=== PATIENT | female | born 1950 | race Caucasian/White ===

== ENCOUNTER 2016-06-24 10:53 | Outpatient (CLI) | payer MEDICARE, OTHER | END 2016-06-24 10:54 | disposition home or self-care (01) | DX: Z12.31 Encounter for screening mammogram for malignant neoplasm of breast (principal); Z80.3 Family history of malignant neoplasm of breast ==

== ENCOUNTER 2017-05-24 08:52 | Day surgery (SDC) | payer MEDICARE, OTHER ==
[2017-05-24] MEDS ORDERED: LACTATED RINGERS 1,000 ML IV ONE (09:37)
[2017-05-24] MEDS ORDERED: MIDAZOLAM 2 MG/2 ML VIAL IVP ONE (11:03)
[2017-05-24] MEDS ORDERED: ONDANSETRON 4 MG/2 ML VIAL IVP ONE (11:03)
[2017-05-24] MEDS ORDERED: fentaNYL 100 MCG/2 ML VIAL IVP ONE (11:03)
[2017-05-24 12:02] VITALS: BP 99/53
== END 2017-05-24 08:53 | disposition home or self-care (01) ==
LOC: SDS 08:52
PROVIDERS: ATTEND Surgery
PROC: 0DBN8ZZ Excision of Sigmoid Colon, Via Natural or Artificial Opening Endoscopic (ICD-10-PCS; 2017-05-24)
PROC: 0DBN8ZZ Excision of Sigmoid Colon, Via Natural or Artificial Opening Endoscopic (ICD-10-PCS; principal; 2017-05-24 10:15)
DX: Z12.11 Encounter for screening for malignant neoplasm of colon (principal); D12.5 Benign neoplasm of sigmoid colon; K21.9 Gastro-esophageal reflux disease without esophagitis; Z87.891 Personal history of nicotine dependence
CPT/HCPCS: 45380; 45385; J7120

== ENCOUNTER 2018-01-20 12:48 | Outpatient (CLI) | payer MEDICARE, OTHER ==
--- NOTE | 2018-01-21 17:29 | Mammography Report ---
Reason: SCREENING MAMMO Procedure Date: 01/20/2018 Accession Number: [id number] / [id number] Procedure: DARYL - Screening Mammo Dig Bilat CPT Code: FULL RESULT: EXAM: Screening Mammo Dig Bilat DATE: 01/20/2018 1:42 PM CLINICAL HISTORY: 67-year-old female with history of bilateral breast biopsies with benign results and family history of breast cancer in the mother at age 60. TECHNIQUE: Bilateral CC and MLO views were obtained. COMPARISON: 06/24/2016, 08/24/2013. FINDINGS: The breasts demonstrate extremely dense parenchyma bilaterally, limiting the sensitivity of mammography. Typically benign coarse calcifications are seen bilaterally. No suspicious masses, clustered microcalcifications, or regions of architectural distortion are identified. IMPRESSION: Benign findings RECOMMENDATION: Routine annual screening unless otherwise clinically indicated. BIRADS CATEGORY 2: Benign findings STANDARD QUALIFYING STATEMENTS: 1. This examination was not reviewed with the aid of Computer-Aided Detection (CAD). 2. A negative or benign imaging report should not delay biopsy if clinically suspicious findings are present. Consider surgical consultation if warrented. More than 5% of cancers are not identified by imaging. 3. Dense breasts may obscure an underlying neoplasm. 4. This examination was reviewed without the aid of 3D breast imaging (tomosynthesis).
== END 2018-01-20 12:49 | disposition home or self-care (01) ==
LOC: DI 12:48
PROVIDERS: ATTEND Radiology Diagnostic Radiology
DX: Z12.31 Encounter for screening mammogram for malignant neoplasm of breast (principal); Z80.3 Family history of malignant neoplasm of breast
CPT/HCPCS: 77067

== ENCOUNTER 2018-03-09 08:59 | Outpatient (CLI) | payer MEDICARE, OTHER ==
--- NOTE | 2018-03-09 17:18 | DEXA Report ---
Reason: POST MENOPAUSAL Procedure Date: 03/09/2018 Accession Number: [id number] / [id number] Procedure: DEX - Dexa Spine and/or Hip CPT Code: FULL RESULT: EXAM: Dexa Spine and/or Hip DATE: 03/09/2018 10:01 AM CLINICAL HISTORY: POST MENOPAUSAL TECHNIQUE: Dual energy x-ray absorptiometry (DXA) was performed on a [employer] System. Regions measured are the AP Spine, femoral neck, and if needed forearm. COMPARISON: None. In accordance with the International Society for Clinical Densitometry (ISCD) guidelines, data from previous exams may be reanalyzed using current recommendations and techniques. This is done to allow a more accurate basis for comparison with the current study. FINDINGS: The data for the lumbar spine is as follows: BMD (g/cm/cm) T-SCORE Z-SCORE REGION L1 1.097 -0.3 1.1 L2 1.198 0.0 1.4 L3 1.299 0.8 2.2 L4 1.245 0.4 1.8 TOTAL 1.213 0.3 1.7 NOTE: All evaluable vertebrae are used for classification The data for the hip is as follows: BMD (g/cm/cm) T-SCORE Z-SCORE REGION Neck 0.958 -0.6 0.8 TOTAL 0.994 -0.1 1.0 NOTE: The femoral neck or total proximal femur, whichever is lowest, is used for classification. IMPRESSION: THE WHO CLASSIFICATION BASED ON THE INTERNATIONAL REFERENCE STANDARD IS NORMAL. THE FRACTURE RISK IS NOT INCREASED. RECOMMENDATION: Patients with diagnosis of osteoporosis or osteopenia should have regular bone mineral density assessment. For those eligible for Medicare, routine testing is allowed once every 2 years. Testing frequency can be increased for patients who have rapidly progressing disease or for those who are receiving medical therapy to restore bone mass. COMMENT: World Health Organization (WHO) definitions for osteoporosis and osteopenia: NORMAL BMD: T-score at -1.0 or higher, fracture risk is low OSTEOPENIA BMD: T-score between -1.0 and -2.5, fracture risk is increased. OSTEOPOROSIS BMD: T-score at -2.5 or lower, fracture risk is high. National Osteoporosis Foundation recommends: 1. Obtain adequate dietary calcium (at least 1200 mg per day) and vitamin D (400-800 international units per day). 2. Participate, as appropriate, in regular weightbearing and muscle-strengthening exercise. 3. Avoid tobacco use and reduce alcohol and caffeine intake. 4. For more detailed information see the website at www.NOF.org.
== END 2018-03-09 09:00 | disposition home or self-care (01) ==
LOC: DI 08:59
PROVIDERS: ATTEND Registered Nurse
DX: Z13.820 Encounter for screening for osteoporosis (principal); Z78.0 Asymptomatic menopausal state
CPT/HCPCS: 77080

== ENCOUNTER 2023-08-23 09:41 | Day surgery (SDC) | payer MEDICARE, OTHER ==
[2023-08-23] MEDS: LACTATED RINGERS 1,000 ML IV ONE (10:01)
--- NOTE | 2023-08-23 10:02 | ANESTHESIA ---
Pre-Anesthesia VS, & Labs - Diagnosis chronic constipation, screening - Procedure colonoscopy Height: 5 ft 9 in Weight (kg): 72.7 kg Body Mass Index: 23.6 BMI Classification: Normal - NPO >8 hours Last Fluid Intake: am prep - Is Patient ?: No - Lab Results Lab results reviewed: Yes Home Medications and Allergies Home Medications: Ambulatory Orders Simvastatin [Zocor] 20 mg PO DAILY 08/23/23 Allergies/Adverse Reactions: Allergies Allergy/AdvReac Type Severity Reaction Status Date / Time codeine AdvReac Nausea Verified 05/24/17 11:37 Anes History & Medical History - Anesthetic History Anesthesia Complications: reports: No previous complications Family history of Anesthesia Complications: Denies Family history of Malignant Hyperthermia: Denies - Medical History Cardiovascular: reports: High cholesterol Pulmonary: reports: None Gastrointestinal: reports: None Urinary: reports: None Musculoskeletal: reports: None Endocrine/Autoimmune: reports: None Skin: reports: None - Surgical History General: reports: Appendectomy, Colonoscopy Gynecologic: reports: Hysterectomy Exam General: Alert, Oriented x3, Cooperative Dental: WNL Mouth Openin Fingerbreadth Mallampati classification: II Thyromental Distance: 4-6 cm Respiratory: Lungs clear, Normal breath sounds, No respiratory distress Cardiovascular: Regular rate Neurological: Normal speech Mental/Cognitive Status: Alert/Oriented X3, Normal for patient Cognitive Status: Within normal limits Plan Anesthesia Type: Total IV Consent for Procedure(s) Verified and Reviewed: Yes Code Status: Attempt Resuscitation ASA classification: 2-Mild systemic disease Is this case an emergency?: No
[2023-08-23 10:16] VITALS: O2SAT 100
[2023-08-23] MEDS ORDERED: PROPOFOL 500 MG/50 ML 500 MG/50 ML VIAL ONE (10:51)
[2023-08-23] MEDS: LACTATED RINGERS 300 ML IV ONE (11:35)
[2023-08-23 12:02] VITALS: BP 129/88
--- NOTE | 2023-08-23 13:08 | ANESTHESIA POST OP EVALUATION ---
Anesthesia Post Eval - Post Anesthesia Eval Vitals: Last Vital Signs Temp 36.6 C 08/23/23 11:50 Pulse 81 08/23/23 11:50 Resp 17 08/23/23 11:50 BP 129/88 H 08/23/23 11:50 Pulse Ox 100 08/23/23 11:50 O2 Flow Rate CV Function Including HR & BP: Stable Pain Control: Satisfactory Nausea & Vomiting: Negative Mental Status: Baseline Respiratory Status: Airway Patent Hydration Status: Satisfactory Anesthesia Complications: None
== END 2023-08-23 09:42 | disposition home or self-care (01) ==
LOC: SDS 09:41
PROVIDERS: ATTEND Surgery
PROC: 0DDN8ZX Extraction of Sigmoid Colon, Via Natural or Artificial Opening Endoscopic, Diagnostic (ICD-10-PCS; 2023-08-23)
PROC: 0DBN8ZZ Excision of Sigmoid Colon, Via Natural or Artificial Opening Endoscopic (ICD-10-PCS; principal; 2023-08-23 11:15)
DX: R19.4 Change in bowel habit (principal); K63.5 Polyp of colon; K64.1 Second degree hemorrhoids; Z87.891 Personal history of nicotine dependence
CPT/HCPCS: 45380; 45385; J7120

== ENCOUNTER 2023-11-21 14:35 | Emergency (ER) | payer MEDICARE, OTHER ==
[2023-11-21] MEDS ORDERED: iohexoL-300 100 ML VIAL ONE (15:08)
--- NOTE | 2023-11-21 15:18 | ED Physician Documentation ---
PD HPI FOCAL NEURO - Stated complaint Stated Complaint: AMS - Chief complaint Chief Complaint: Neuro - History obtained from History obtained from: Patient - History of Present Illness Timing - onset: How many hours ago (about 4-5 hours ago, awoke at 8:30 and seeme d to feel okay. was talkig and not confused. Then about hour later, noted onset of feeling confused and not sure what she was supposed to be doing and not remembering details of recent few days, but also some remote memories from weeks or more prior.), Today Timing - details: Abrupt onset, Still present (improving but not resolved as yet.) Associated symptoms: No: Headache, Nausea / vomiting, Chest pain, Neck pain Similar symptoms before: Has not had sx before Review of Systems Constitutional: denies: Fever, Chills Nose: denies: Rhinorrhea / runny nose, Congestion Throat: reports: Oral lesions / sores (onset of lip labial cold sore this morning, that she has had prior, and 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 First time taking it this morning.). denies: Sore throat Respiratory: denies: Cough Neurologic: denies: Focal weakness, Numbness, Near syncope, Headache, Head injury PD PAST MEDICAL HISTORY - Past Medical History Past Medical History: Yes Cardiovascular: High cholesterol Respiratory: None Endocrine/Autoimmune: None GI: None TELESALES AGENT: None : None HEENT: None Psych: None Musculoskeletal: None Derm: None - Past Surgical History Past Surgical History: Yes General: Appendectomy, Colonoscopy /TELESALES AGENT: Hysterectomy - Present Medications Home Medications: Ambulatory Orders Medication Instructions Recorded Confirmed Simvastatin [Zocor] 20 mg PO DAILY 08/23/23 11/21/23 - Allergies Allergies/Adverse Reactions: Allergies Allergy/AdvReac Type Severity Reaction Status Date / Time codeine AdvReac Nausea Verified 11/21/23 14:41 - Social History Does the pt smoke?: No Smoking Status: Former smoker Does the pt drink ETOH?: Yes ETOH Use: Wine Does the pt have substance abuse?: No - Immunizations Immunizations are current?: Yes - POLST Patient has POLST: No PD ED PE NORMAL - Vitals Vital signs reviewed: Yes - General General: Alert and oriented X 3, No acute distress, Well developed/nourished - Neck Neck: Supple, no meningeal sign, No adenopathy, No bruit - Cardiac Cardiac: RRR, No murmur - Respiratory Respiratory: Clear bilaterally - Neuro Neuro: Alert and oriented X 3, workers compensation consultant 2-12 intact, No motor deficit, No sensory deficit, Normal speech, Other (only deficit is that she seems to have difficultly remembering some details of recent events and the names of some people she should remember. ) Eye Opening: Spontaneous Motor: Obeys Commands Verbal: Oriented GCS Score: 15 NIHSS - Level of Consciousness Level of consciousness: (0) Alert, Keenly responsive LOC Questions: (0) Answers both Q's correct LOC Commands: (0) Performs both correctly - Gaze Best Gaze: (0) Normal - Visual Visual: (0) No loss - Facial Palsy Facial Palsy: (0) Normal, symmetrical movement - Motor Arms (both separate) Motor Arm (right): (0) No drift Motor Arm (left): (0) No drift - Motor Legs (both separate) Motor Leg (right): (0) No drift Motor Leg (left): (0) No drift - Limb Ataxia Limb Ataxia: (0) Absent - Sensory Sensory: (0) Normal - Best Language Best Language: (0) No aphasia - Dysarthria Dysarthria: (0) Normal - Extinction and Inattention (formally neg Extinction and inattention: (0) No abnormality - Total Score/Results Total Score/Result: 0 Results - Vitals Vitals: Vital Signs - 24 hr 11/21/23 11/21/23 11/21/23 14:43 15:19 15:49 Temperature 36.4 C L Heart Rate 92 77 78 Respiratory 16 10 L 18 Rate Blood Pressure 116/69 141/69 H 140/70 H O2 Saturation 100 100 98 11/21/23 11/21/23 11/21/23 16:00 17:00 17:30 Temperature Heart Rate 76 84 80 Respiratory 14 16 18 Rate Blood Pressure 141/69 H 142/86 H 140/76 H O2 Saturation 100 98 98 11/21/23 18:00 Temperature Heart Rate 77 Respiratory 16 Rate Blood Pressure 138/70 H O2 Saturation 100 Oxygen O2 Source Room air - Labs Labs: Laboratory Tests 11/21/23 11/21/23 11/21/23 15:20 15:20 15:20 WBC 7.3 RBC 3.99 L Hgb 13.7 Hct 41.3 MCV 103.5 H MCH 34.3 H MCHC 33.2 RDW 13.4 Plt Count 241 MPV 10.5 Neut # (Auto) 4.2 Lymph # (Auto) 2.3 [place] # (Auto) 0.5 Eos # (Auto) 0.2 Baso # (Auto) 0.1 Absolute Nucleated RBC 0.00 Nucleated RBC % 0.0 ESR PT 10.9 INR 1.0 Sodium 139 Potassium 3.8 Chloride 104 Carbon Dioxide 29 Anion Gap 6.0 BUN 14 Creatinine 1.0 Estimated GFR (MDRD) 55 L Glucose 116 H Calcium 9.7 Magnesium 2.0 Total Bilirubin 0.5 AST 29 ALT 34 Alkaline Phosphatase 70 Total Protein 7.3 Albumin 4.8 Globulin 2.5 Albumin/Globulin Ratio 1.9 Lipase 51 11/21/23 15:20 WBC RBC Hgb Hct MCV MCH MCHC RDW Plt Count MPV Neut # (Auto) Lymph # (Auto) [place] # (Auto) Eos # (Auto) Baso # (Auto) Absolute Nucleated RBC Nucleated RBC % ESR 7 PT INR Sodium Potassium Chloride Carbon Dioxide Anion Gap BUN Creatinine Estimated GFR (MDRD) Glucose Calcium Magnesium Total Bilirubin AST ALT Alkaline Phosphatase Total Protein Albumin Globulin Albumin/Globulin Ratio Lipase PD Medical Decision Making - ED course Complexity details: reviewed results (head CT and CT-A are normal. Labs are without abnormal finding. Symptoms are not mainly c/w CVA, more like TGA though the timing of the valtrex just prior is most suspect. Epocrates med reference lists confusion and neuro changes as severe side effect. So most likely that is the explanation. ), considered differential (memory problems this morning to now, with resolving slowly but still not baseline. No focal weakness, numbness, visual change, etc. Had taken new med for cold sore, valtrex, about 30 minutes prior to onset. ), d/w patient Departure - Departure Disposition: 01 Home, Self Care Clinical Impression: Memory deficit, Medication side effect Condition: Stable Record reviewed to determine appropriate education?: Yes Follow-Up: Golden Watkins MD [Primary Care Provider] - Comments: Your basic blood tests including a complete blood count and chemistry panel and a inflammation marker called the ESR are all normal. No signs of metabolic cause. Your CT of the head and the CT angiogram of the head do not show any obvious abnormalities nor alteration in blood flow to the brain. Your symptoms and the timing of your medications sound likely to be a side effect of the valacyclovir. In a medication side effect program that I reference called Epocrates, delirium is listed as a side effect to the medication occasionally. Other consideration with the memory deficit could be a condition called transient global amnesia (TGA). This is typically a 1 off type process which is essentially a "hiccup" in the brain function affecting just the memory and typically resolves over a day or 2. It is rare to be recurring. I would not take anymore the valacyclovir as this is a likely culprit. Hydrate well through the day otherwise. Follow-up with your primary care if persisting symptoms more than a day or 2 or any recurring episodes. Forms: PCP List Discharge Date/Time: 11/21/23 18:27
[2023-11-21 15:54] LABS: BASOPHILS # (AUTO) 0.1 10^3/uL (0.0-0.1); EOSINOPHILS # (AUTO) 0.2 10^3/uL (0.0-0.7); EOSINOPHILS % (AUTO) 2.6 %; HCT - HEMATOCRIT 41.3 % (37.0-47.0); HGB - HEMOGLOBIN 13.7 g/dL (12.0-16.0); LYMPHOCYTES # (AUTO) 2.3 10^3/uL (1.5-3.5); LYMPHOCYTES % (AUTO) 31.7 %; MEAN CORPUSCULAR HEMOGLOBIN 34.3 pg (27.0-31.0); MEAN CORPUSCULAR HGB CONC 33.2 g/dL (32.0-36.0); MEAN CORPUSCULAR VOLUME 103.5 fL (81.0-99.0); MEAN PLATELET VOLUME 10.5 fL (7.9-10.8); MONOCYTES # (AUTO) 0.5 10^3/uL (0.0-1.0); MONOCYTES % (AUTO) 7.4 %; NEUTROPHILS # (AUTO) 4.2 10^3/uL (1.5-6.6); PLT - PLATELET COUNT 241 10^3/uL (130-450); RED BLOOD COUNT 3.99 10^6/uL (4.20-5.40); RED CELL DISTRIBUTION WIDTH 13.4 % (12.0-15.0); WHITE BLOOD COUNT 7.3 x10^3/uL (4.8-10.8)
[2023-11-21] MEDS: SODIUM CHLORIDE 0.9% 1,000 ML IV STA (15:56)
[2023-11-21 16:00] LABS: PT - PROTHROMBIN TIME 10.9 secs (9.9-12.6)
[2023-11-21 16:10] LABS: ALBUMIN 4.8 g/dL (3.2-5.5); ALBUMIN/GLOBULIN RATIO 1.9 (1.0-2.2); BILIRUBIN,TOTAL 0.5 mg/dL (0.2-1.0); CALCIUM 9.7 mg/dL (8.5-10.3); POTASSIUM 3.8 mmol/L (3.5-4.5); TOTAL PROTEIN 7.3 g/dL (6.4-8.9)
[2023-11-21 16:19] VITALS: O2SAT 100
--- NOTE | 2023-11-21 17:10 | CT Report ---
PROCEDURE: Head WO INDICATIONS: tia TECHNIQUE: Helical axial CT of the brain was obtained without contrast and reformatted in multiple p lanes. Radiation dose reduction was achieved using automated exposure control or adjustment of mA and /or kV according to patient size. COMPARISON: None FINDINGS: CSF spaces: Ventricles are appropriate in size and position. No hydrocephalus. Basal cisterns unre markable. Brain: No midline shift. No intracranial masses or hemorrhage. Tavares-white matter interface is norm al. Skull and face: Calvarium and skull base are unremarkable without suspicious lesion. Sinuses: Visualized sinuses and mastoids are clear. IMPRESSION: Unremarkable CT of the brain Reviewed by: Adam Paul MD on 11/21/2023 4:09 PM ISABELLA Approved by: Adam Paul MD on 11/21/2023 4:09 PM ISABELLA Station ID: [id number]
--- NOTE | 2023-11-21 17:26 | CT Report ---
PROCEDURE: Angio Head/Neck INDICATIONS: tia TECHNIQUE: Helical axial CT of the head and neck was obtained during the arterial phase of a intrave nous contrast injection utilizing an angiographic protocol. Multiplanar traditional and MIP reformat s were also obtained. Dose reduction techniques included either automated exposure control or adjustm ent of exposure parameters. COMPARISON: None. FINDINGS: Cerebral CT Angiogram: Internal carotid arteries: No acute findings. Intracranial ICA are patent with no significant steno sis. No occlusion. No aneurysm. Anterior cerebral arteries: Unremarkable. No significant stenosis. No occlusion. No aneurysm. Middle cerebral arteries: Unremarkable. No significant stenosis. No occlusion. No aneurysm. 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 The P2 segment are sup plied by a widely patent posterior communicating artery. Remainder of the distal vasculature unremark able. Basilar artery: Unremarkable. No significant stenosis. No occlusion. No aneurysm. Hypoplastic bas ilar artery terminates in the superior cerebellar arteries Vertebral arteries: Left vertebral artery dominance. Diminutive but patent right vertebral artery ter minates in the right posterior inferior cerebellar artery Dural venous sinuses: Unremarkable given phase of enhancement. Other: Arterial phase appearance of the brain parenchyma is unremarkable. Neck CT Angiogram: Internal carotid arteries: Unremarkable. No significant stenosis. No dissection or occlusion. Common carotid arteries: Unremarkable. No significant stenosis. No dissection or occlusion. External carotid arteries: Unremarkable. No occlusion. Vertebral arteries: Unremarkable. No significant stenosis. No dissection or occlusion. Left verteb ral artery dominance Aortic Arch and Mediastinum: Partially visualized aortic arch unremarkable without evidence of aneury sm. Origins of the great vessels unremarkable. Other: Arterial phase soft tissues of the neck are unremarkable. IMPRESSION: Unremarkable CT angiogram of the head and neck. No evidence of large vessel occlusion, aneurysm or va scular malformation Reviewed by: Adam Paul MD on 11/21/2023 4:25 PM AKNANCY Approved by: Adam Paul MD on 11/21/2023 4:25 PM AKDT Station ID: [id number]
[2023-11-21] MEDS: iohexoL-300 100 ML VIAL IVP ONE (17:54)
[2023-11-21 18:34] VITALS: BP 138/70
== END 2023-11-21 18:27 | disposition home or self-care (01) ==
LOC: ED 14:35
DX: F06.8 Other specified mental disorders due to known physiological condition (principal); T37.5X5A Adverse effect of antiviral drugs, initial encounter; E78.00 Pure hypercholesterolemia, unspecified
CPT/HCPCS: 36415; 70450; 70496; 70498; 80053; 83690; 83735; 85025; 85610; 85651; 93005; 99284; Q9967